=== PATIENT | female | born 1995 | race African-American/Black ===

== ENCOUNTER 2019-06-08 08:24 | Emergency (ER) | payer MEDICAID ==
[~2019-06-08] VITALS: Ht 175.3 cm; Wt 155.0 kg
[2019-06-08 10:31] LABS: BASOPHILS % 0.9 % (0.0-2.0); EOSINOPHILS % 3.1 % (0.0-5.0); HEMATOCRIT. 38.3 % (36.0-48.0); HEMOGLOBIN. 12.6 g/dL (12.0-16.0); LYMPHOCYTES % 39.4 % (20.0-50.0); MEAN CORPUSCULAR HEMOGLOBIN 25.5 pg (28.0-32.0); MEAN CORPUSCULAR VOLUME 77.9 fL (81.0-99.0); MEAN PLATELET VOLUME 9.4 fl (7.4-10.4); MONOCYTES % 9.4 % (2.0-8.0); NEUTROPHILS % 47.2 % (40.0-76.0); PLATELET 271 x1000/uL (130-400); RED BLOOD CELL COUNT 4.93 mill/uL (4.2-5.4); RED CELL DISTRIBUTION WIDTH 15.2 % (11.6-14.6)
[2019-06-08 10:38] LABS: CHLORIDE 104 mEq/L (98-107)
[2019-06-08 10:40] LABS: PROTHROMBIN TIME 10.2 sec (9.6-11.0)
[2019-06-08 10:41] LABS: HCG SCREEN NEGATIVE
[2019-06-08 11:39] VITALS: BP 127/77
== END 2019-06-08 11:40 | disposition home or self-care (01) ==
LOC: ER 08:24
DX: R19.7 Diarrhea, unspecified (principal); R03.0 Elevated blood-pressure reading, without diagnosis of hypertension
CPT/HCPCS: 36415; 81025; 84703; 99283

== ENCOUNTER 2019-10-20 18:11 | Emergency (ER) | payer MEDICAID ==
[~2019-10-20] VITALS: Ht 175.3 cm; Wt 157.0 kg
[2019-10-20] MEDS ORDERED: ACETAMINOPHEN 325MG TABLET PO ONE (20:30)
[2019-10-20] MEDS ORDERED: ONDANSETRON 4MG ODT PO ONE (22:00)
[2019-10-20 22:28] VITALS: BP 124/68
== END 2019-10-20 22:31 | disposition home or self-care (01) ==
LOC: ER 18:32
DX: O26.892 Other specified pregnancy related conditions, second trimester (principal); R51 Headache; R10.11 Right upper quadrant pain; O21.0 Mild hyperemesis gravidarum; Z3A.15 15 weeks gestation of pregnancy; Z90.49 Acquired absence of other specified parts of digestive tract; Z98.890 Other specified postprocedural states; Z87.19 Personal history of other diseases of the digestive system; Z88.5 Allergy status to narcotic agent
CPT/HCPCS: 76705; 99284; Q0162

== ENCOUNTER → 2020-03-15 | Outpatient (CLI) | payer MEDICAID ==
[~2020-03-15] MED LIST: FERR325T23 PO; IBUP-2028 PO
== END | disposition home or self-care (01) ==
LOC: LAB 17:09
PROVIDERS: ATTEND Obstetrics & Gynecology
DX: U07.1 COVID-19 (principal)
CPT/HCPCS: C9803; U0003

== ENCOUNTER 2020-03-17 08:38 | Inpatient (IN) | payer MEDICAID ==
[~2020-03-17] VITALS: Ht 175.3 cm; Wt 160.6 kg
[2020-03-17] MEDS: DEXT 5%/LR + PITOCIN 20UNITS/L 1,000 ML IV SCH (02:30)
[2020-03-17] MEDS ORDERED: LACTATED RINGERS 1,000 ML IV SCH (08:40)
[2020-03-17] MEDS ORDERED: CARBOPROST TROMETHAMINE 250 MCG/ML AMPUL IM PRN (08:45)
[2020-03-17] MEDS ORDERED: METHYLERGONOVINE MALEATE 0.2 MG/ML IM PRN (08:45)
[2020-03-17] MEDS ORDERED: NALOXONE HCL 0.4 MG/ML 1ML VIAL IM PRN (08:45)
[2020-03-17] MEDS ORDERED: MORPHINE SULFATE/PF 1MG/ML 10ML AMP ONE (09:16)
[2020-03-17] MEDS ORDERED: DEXAMETHASONE 4MG/ML 1ML VIAL ONE (09:19)
[2020-03-17] MEDS ORDERED: ONDANSETRON HCL 4MG/2ML INJ ONE (09:19)
[2020-03-17] MEDS ORDERED: SODIUM CHLORIDE 0.9% 10ML VIAL ONE (09:19)
[2020-03-17] MEDS ORDERED: CEFAZOLIN SODIUM 1000MG/VIAL ONE ×3 (09:19→12:01)
[2020-03-17] MEDS ORDERED: PHENYLEPHRINE HCL 10 MG/ML 1ML (IV VIAL) IV ONE (09:19)
[2020-03-17] MEDS ORDERED: GLYCOPYRROLATE 0.2 MG/ML 2ML VIAL ONE (09:19)
[2020-03-17] MEDS ORDERED: EPHEDRINE SULFATE 50MG/ML VIAL ONE (09:19)
[2020-03-17] MEDS ORDERED: METOCLOPRAMIDE HCL 10MG/2ML VIAL ONE (09:24)
[2020-03-17] MEDS ORDERED: KETOROLAC 60MG/2ML VIAL IM ONE (09:26)
[2020-03-17] MEDS ORDERED: SUCCINYLCHOLINE CHLORIDE 200MG/10ML IV ONE (09:26)
[2020-03-17] MEDS ORDERED: ROCURONIUM BROMIDE 10MG/ML VIAL 5ML IV ONE (09:26)
[2020-03-17] MEDS ORDERED: PROPOFOL 200MG/20ML VIAL IV ONE (09:26)
[2020-03-17] MEDS ORDERED: OXYTOCIN 10 UNITS/ML 1ML ONE (09:27)
[2020-03-17 09:44] LABS: BASOPHILS % 0.4 % (0.0-2.0); EOSINOPHILS % 2.3 % (0.0-5.0); HEMATOCRIT. 31.7 % (36.0-48.0); HEMOGLOBIN. 10.5 g/dL (12.0-16.0); LYMPHOCYTES % 24.2 % (20.0-50.0); MEAN CORPUSCULAR HEMOGLOBIN 25.3 pg (28.0-32.0); MEAN CORPUSCULAR VOLUME 76.6 fL (81.0-99.0); NEUTROPHILS % 63.1 % (40.0-76.0); PLATELET 193 x1000/uL (130-400); RED BLOOD CELL COUNT 4.14 mill/uL (4.2-5.4); RED CELL DISTRIBUTION WIDTH 15.8 % (11.6-14.6)
[2020-03-17 09:53] LABS: CLARITY URINE CLOUDY (CLEAR); COLOR URINE YELLOW (YELLOW); KETONES URINE 1+ (NEGATIVE); LEUKOCYTE ESTERASE URINE NEGATIVE (NEGATIVE); NITRITE URINE NEGATIVE (NEGATIVE); OCCULT BLOOD URINE NEGATIVE (NEGATIVE); PH URINE 6.5 (4.5-8.0); PROTEIN URINE TRACE (NEGATIVE); SPECIFIC GRAVITY URINE 1.023 (1.005-1.030)
[2020-03-17 09:54] LABS: INR 0.9; PARTIAL THROMBOPLASTIN TIME 27.7 sec (23.4-31.0); PROTHROMBIN TIME 9.9 sec (9.6-11.0)
[2020-03-17 10:07] LABS: *AMPHETAMINES SCREEN URINE NEGATIVE (NEGATIVE); *BARBITURATES SCREEN URINE NEGATIVE (NEGATIVE); *BENZODIAZEPINES SCREEN URINE NEGATIVE (NEGATIVE); *COCAINE SCREEN URINE NEGATIVE (NEGATIVE); METHADONE URINE SCREEN NEGATIVE (NEGATIVE); OPIATES URINE SCREEN NEGATIVE (NEGATIVE)
[2020-03-17 10:08] LABS: CANNABINOID URINE SCREEN NEGATIVE (NEGATIVE); PHENCYCLIDINE URINE SCREEN NEGATIVE (NEGATIVE)
[2020-03-17] MEDS ORDERED: DEXT 5%/LR + PITOCIN 20UNITS/L 1,000 ML IV SCH (11:44)
[2020-03-17] MEDS ORDERED: LANOLIN OINT 7GM TUBE TOP PRN (11:45)
[2020-03-17] MEDS ORDERED: DIPHENHYDRAMINE 25MG CAPSULE PO PRN (11:45)
[2020-03-17] MEDS ORDERED: ACETAMINOPHEN WITH CODEINE 300/30MG TABLET PO PRN (11:45)
[2020-03-17] MEDS ORDERED: ONDANSETRON HCL 4MG/2ML INJ IV PRN (11:45)
[2020-03-17] MEDS ORDERED: HYDROCODONE/ACETAMINOPHEN 5/325MG TABLET PO PRN (11:45)
[2020-03-17] MEDS: MAGNESIUM/ALUMINUM HYDROXIDE/SIMETHICONE 30ML UDC PO SCH ×3 (12:10→21:00)
[2020-03-17 12:27] LABS: HEPATITIS B SURFACE ANTIGEN NEGATIVE
[2020-03-17] MEDS: SIMETHICONE 80MG TABLET CHEW PO SCH ×3 (12:40→21:00)
[2020-03-17] MEDS ORDERED: NALOXONE HCL 0.4 MG/ML 1ML VIAL IV PRN (12:45)
[2020-03-17] MEDS ORDERED: DIPHENHYDRAMINE 50MG/ML VIAL IM PRN (12:45)
[2020-03-17 14:40] VITALS: BP 114/79
[2020-03-17 15:30] VITALS: BP 117/79
[2020-03-17 16:17] VITALS: BP 124/78
[2020-03-17 20:40] VITALS: BP 113/55
[2020-03-18] VITALS (8 sets, daily range): BP systolic 113–132; BP diastolic 56–78
[2020-03-18] MEDS: DEXT 5%/LR + PITOCIN 20UNITS/L 1,000 ML IV SCH (02:30)
[2020-03-18] MEDS ORDERED: KETOROLAC 30MG/ML VIAL IV PRN (07:00)
[2020-03-18] MEDS: MAGNESIUM/ALUMINUM HYDROXIDE/SIMETHICONE 30ML UDC PO SCH ×4 (07:10→23:00)
[2020-03-18 07:42] LABS: BASOPHILS % 0.2 % (0.0-2.0); EOSINOPHILS % 0.4 % (0.0-5.0); HEMATOCRIT. 28.5 % (36.0-48.0); HEMOGLOBIN. 9.3 g/dL (12.0-16.0); LYMPHOCYTES % 16.1 % (20.0-50.0); MEAN CORPUSCULAR VOLUME 76.8 fL (81.0-99.0); MEAN PLATELET VOLUME 10.1 fl (7.4-10.4); MONOCYTES % 9.9 % (2.0-8.0); NEUTROPHILS % 73.4 % (40.0-76.0); PLATELET 173 x1000/uL (130-400); RED BLOOD CELL COUNT 3.71 mill/uL (4.2-5.4); RED CELL DISTRIBUTION WIDTH 15.8 % (11.6-14.6)
[2020-03-18] MEDS: PRENATAL VIT/FE FUMARATE/FA TABLET PO SCH (08:28)
[2020-03-18] MEDS: FERROUS SULFATE 325MG TABLET PO SCH ×2 (08:28→13:23)
[2020-03-18] MEDS: SIMETHICONE 80MG TABLET CHEW PO SCH ×4 (08:30→23:00)
[2020-03-18] MEDS: IBUPROFEN 400MG TABLET PO PRN ×3 (11:32→23:10)
[2020-03-19 04:00] VITALS: BP 136/85
[2020-03-19] MEDS ORDERED: IBUP-2028 PO (06:58)
[2020-03-19] MEDS ORDERED: FERR325T23 PO (06:58)
[2020-03-19] MEDS: SIMETHICONE 80MG TABLET CHEW PO SCH (07:40)
[2020-03-19 07:43] VITALS: BP 123/63
[2020-03-19 08:20] VITALS: BP 123/63
[2020-03-19] MEDS: PRENATAL VIT/FE FUMARATE/FA TABLET PO SCH (08:20)
[2020-03-19] MEDS: IBUPROFEN 400MG TABLET PO PRN (08:20)
== END 2020-03-19 13:30 | disposition home or self-care (01) | DRG 540 ==
LOC: L&D 08:38
PROVIDERS: ADMIT Obstetrics & Gynecology; ATTEND Obstetrics & Gynecology
PROC: 10D00Z1 Extraction of Products of Conception, Low, Open Approach (ICD-10-PCS; principal; 2020-03-17)
DX: O98.52 Other viral diseases complicating childbirth (principal); O34.211 Maternal care for low transverse scar from previous cesarean delivery; O99.214 Obesity complicating childbirth; E66.01 Morbid (severe) obesity due to excess calories; O76 Abnormality in fetal heart rate and rhythm complicating labor and delivery; O99.03 Anemia complicating the puerperium; D64.9 Anemia, unspecified; O62.2 Other uterine inertia; U07.1 COVID-19; O26.62 Liver and biliary tract disorders in childbirth; K83.1 Obstruction of bile duct; Z37.0 Single live birth; Z3A.38 38 weeks gestation of pregnancy; Z88.6 Allergy status to analgesic agent
CPT/HCPCS: 36415; 80305; 81003; 85025; 86592; 86703; 86762; 86850; 86900; 86920; 87340; 88307; J0330; J0690; J1100; J1885; J2274; J2370; J2405; J2590; J2704; J2765; J3490; J7120; Q0163